=== PATIENT | male | born 1970 | race African-American/Black ===

== ENCOUNTER 2023-11-04 07:37 | Inpatient (IN) ==
[2023-11-04] MEDS ORDERED: IOPAMIDOL 100 ML BOTTLE IV ONE (07:38)
[2023-11-04] MEDS: 0.9 % SODIUM CHLORIDE 1,000 ML IV ONE ×2 (07:44→08:39)
[2023-11-04] MEDS: ACETAMINOPHEN 325 MG TABLET PO ONE (08:10)
[2023-11-04] MEDS: cefTRIAXone 2 GM in DEXTROSE 5% IN WATER 50 ML IV ONE (08:17)
[2023-11-04] MEDS: ACETAMINOPHEN 650 MG/65 ML BAG IV ONE (08:17)
[2023-11-04 08:21] LABS: ABG Methemoglobin 0.3 % (0.4-1.5); Total Hemoglobin 13.8 gm/Dl (13.5-16.5); VBG Base Excess 0 (-2-3); VBG HCO3 24.8 mmol/L (24.0-28.0); VBG Oxygen Saturation 89.5 % (40.0-70.0); VBG PCO2 40.9 mmHg (41.0-51.0); VBG Total CO2 26.1 mmol/L (25.0-29.0)
[2023-11-04 08:23] LABS: Basophils # (Auto) 0.02 K/mcL (0.00-0.30); Basophils % (Auto) 0.5 % (0.0-2.0); Eosinophils # (Auto) 0.03 K/mcL (0.00-0.70); Eosinophils % (Auto) 0.8 % (0.0-7.0); Hematocrit 36.9 % (40.1-51.0); Hemoglobin 12.3 g/dL (13.7-17.5); Lymphocytes # (Auto) 0.71 K/mcL (1.50-4.80); Lymphocytes % (Auto) 19.1 % (15.5-49.0); Mean Cell Volume 97.9 fL (80.0-100.0); Mean Corpuscular HGB Conc 33.3 g/dL (31.0-36.0); Mean Platelet Volume 10.8 fL (8.8-12.5); Monocytes # (Auto) 0.44 K/mcL (0.10-0.90); Monocytes % (Auto) 11.9 % (1.0-12.0); Neutrophils % (Auto) 67.4 % (38.0-78.0); Platelet Count 233 K/mcL (140-440); RBC 3.77 M/mcL (4.63-6.08); Red Cell Distribution Width 12.1 % (11.5-14.5); WBC 3.7 K/mcL (4.5-11.0)
[2023-11-04 08:42] LABS: Alcohol, Blood < 10.1 mg/dL; Alcohol,Blood < 0.010 gm/dL (<0.010)
[2023-11-04 09:08] LABS: INR 0.8 (0.9-1.1); Prothrombin Time 11.4 sec (11.9-14.5)
[2023-11-04 10:01] LABS: ALT/SGPT 13 U/L (<40); AST/SGOT 18 U/L (<40); Albumin 3.2 gm/dL (3.2-5.2); Alkaline Phosphatase 85 U/L (39-117); Bilirubin,Total 0.2 mg/dL (0.1-1.0); Blood Urea Nitrogen 19 mg/dL (6-20); Carbon Dioxide 23 mmol/L (22-30); Chloride 95 mmol/L (96-108); Globulin 3.3 gm/dL (2.2-3.7); Glomerular Filtration Rate 85; Glucose 766 mg/dL (70-105); Potassium 5.3 mmol/L (3.3-5.1); Sodium 128 mmol/L (133-145)
[2023-11-04 10:15] LABS: Appearance,Urine Clear (Clear); Bacteria,Urine Rare /hpf (0); Bilirubin,Urine Negative (Negative); Color,Urine Yellow; Culture Indicated,Urine Yes; Glucose,Urine (UA) >=1000 mg/dL (Negative); Ketones,Urine Negative (Negative); Leukocyte Esterase,Urine Negative /uL (Negative); Nitrate,Urine Negative (Negative); Protein,Urine 100 mg/dL (Negative); Urine Blood Trace-lysed ery/mcL (Negative); Urine RBC 0 /hpf (0-3); Urine Squamous Epithelial Cell 1 /hpf (0-4); Urine WBC 0 /hpf (0-4); Urobilinogen,Urine Normal
[2023-11-04] MEDS ORDERED: INSULIN REGULAR, HUMAN 50 UNIT in 0.9 % SODIUM CHLORIDE 99.5 ML IV SCH ×2 (10:15→12:30)
[2023-11-04] MEDS: 0.9 % SODIUM CHLORIDE 500 ML IV ONE (10:36)
[2023-11-04] MEDS: INSULIN REGULAR, HUMAN 1 UNIT/0.01 ML UNIT IV ONE (10:36)
[2023-11-04 11:58] LABS: Blood Urea Nitrogen 20 mg/dL (6-20); Calcium 9.2 mg/dL (8.6-10.4); Carbon Dioxide 19 mmol/L (22-30); Chloride 96 mmol/L (96-108); Glomerular Filtration Rate 76; Glucose 785 mg/dL (70-105); Potassium 5.4 mmol/L (3.3-5.1); Sodium 131 mmol/L (133-145)
[2023-11-04] MEDS: INSULIN REGULAR, HUMAN 50 UNIT in 0.9 % SODIUM CHLORIDE 99.5 ML IV SCH (12:10)
[2023-11-04 12:55] LABS: Blood Urea Nitrogen 18 mg/dL (6-20); Calcium 8.7 mg/dL (8.6-10.4); Carbon Dioxide 21 mmol/L (22-30); Chloride 102 mmol/L (96-108); Glomerular Filtration Rate 101; Glucose 436 mg/dL (70-105); Potassium 4.7 mmol/L (3.3-5.1); Sodium 131 mmol/L (133-145)
[2023-11-04] MEDS: AMPICILLIN SODIUM/SULBACTAM NA 3 GM in 0.9 % SODIUM CHLORIDE 100 ML IV SCH (13:14)
[2023-11-04 14:15] LABS: Sodium, Urine Random 49 mmol/L
[2023-11-04 14:23] LABS: Osmolality,Urine 576 mOSM/kg (80-1000)
[2023-11-04 14:59] LABS: Blood Urea Nitrogen 16 mg/dL (6-20); Calcium 8.9 mg/dL (8.6-10.4); Carbon Dioxide 23 mmol/L (22-30); Chloride 105 mmol/L (96-108); Glomerular Filtration Rate 101; Glucose 327 mg/dL (70-105); Phosphorous 3.2 mg/dL (2.5-4.5); Potassium 4.4 mmol/L (3.3-5.1); Sodium 134 mmol/L (133-145)
[2023-11-04] MEDS ORDERED: DEXTROSE 50% 50 ML VIAL IV PRN (16:18)
[2023-11-04] MEDS ORDERED: DEXTROSE 31 GM ORAL.SUSP PO PRN (16:18)
[2023-11-04] MEDS: EMTRICITABINE PO SCH (16:28)
[2023-11-04] MEDS: TENOFOVIR PO SCH (16:28)
[2023-11-04] MEDS: EMTRICITABINE PO ONE (16:29)
[2023-11-04] MEDS: TENOFOVIR PO ONE (16:29)
[2023-11-04] MEDS: DEXTROSE 5% IN WATER 1,000 ML IV SCH (17:49)
[2023-11-04] MEDS ORDERED: MAGNESIUM SULFATE 2 GM/50 ML BAG IV PRN (18:00)
[2023-11-04] MEDS ORDERED: ONDANSETRON 4 MG/2 ML VIAL IV PRN (18:00)
[2023-11-04] MEDS ORDERED: POTASSIUM CHLORIDE 20 MEQ TABLET PO PRN ×2 (18:00)
[2023-11-04] MEDS ORDERED: MAGNESIUM HYDROXIDE 30 ML ORAL.SUSP PO PRN (18:00)
[2023-11-04] MEDS ORDERED: ENALAPRILAT 1.25 MG/ML VIAL IV PRN (18:00)
[2023-11-04] MEDS ORDERED: LABETALOL HCL 20 MG/4 ML VIAL IV PRN (18:00)
[2023-11-04] MEDS ORDERED: POLYETHYLENE GLYCOL 3350 17 GM PACKET PO PRN (18:00)
[2023-11-04] MEDS ORDERED: LACTULOSE 20 GM/30 ML ORAL.SOL PO PRN (18:00)
[2023-11-04] MEDS ORDERED: IPRATROPIUM/ALBUTEROL 3 ML AMPUL.NEB NEB PRN (18:00)
[2023-11-04] MEDS ORDERED: VANCOMYCIN PER PHARMACY IV SCH (18:00)
[2023-11-04] MEDS ORDERED: BISACODYL 10 MG SUPP.RECT PR PRN (18:00)
[2023-11-04] MEDS ORDERED: SENNOSIDES 1 TABLET PO PRN (18:00)
[2023-11-04] MEDS ORDERED: POTASSIUM CHLORIDE 40 MEQ in DEXTROSE 5% IN WATER 500 ML IV PRN (18:00)
[2023-11-04] MEDS: NICOTINE 21 MG PATCH TOPICAL SCH (18:58)
[2023-11-04] MEDS: 0.9 % SODIUM CHLORIDE 1,000 ML IV SCH (18:58)
[2023-11-04] MEDS: POLYETHYLENE GLYCOL 3350 17 GM PACKET PO SCH (18:58)
[2023-11-04] MEDS: LISINOPRIL 10 MG TABLET PO SCH (18:58)
[2023-11-04] MEDS: INSULIN GLARGINE, HUMAN 1 UNIT/0.01 ML SQ SCH (18:58)
[2023-11-04] MEDS: SENNOSIDES 1 TABLET PO SCH (18:58)
[2023-11-04] MEDS: VANCOMYCIN 1,500 MG in 0.9 % SODIUM CHLORIDE 500 ML IV SCH (19:12)
[2023-11-04] MEDS: INSULIN LISPRO 1 UNIT/0.01 ML UNIT SQ SCH (20:34)
[2023-11-04] MEDS: TAMSULOSIN 0.4 MG CAPSULE PO SCH (20:35)
[2023-11-04] MEDS: RALTEGRAVIR POTASSIUM 400 MG TABLET PO SCH (21:00)
[2023-11-04] MEDS: DOLUTEGRAVIR 10 MG PO ONE (21:00)
[2023-11-04] MEDS: DOCUSATE SODIUM 100 MG CAPSULE PO SCH (22:07)
[2023-11-04] MEDS: ATORVASTATIN 40 MG TABLET PO SCH (22:07)
[2023-11-04] MEDS: GABAPENTIN 300 MG CAPSULE PO SCH (22:08)
[2023-11-04] MEDS: MELATONIN 3 MG TABLET PO PRN (22:08)
[2023-11-04] MEDS: ACETAMINOPHEN 325 MG TABLET PO PRN (22:21)
[2023-11-05 05:42] LABS: Hematocrit 33.6 % (40.1-51.0); Hemoglobin 11.1 g/dL (13.7-17.5); Mean Cell Volume 102.8 fL (80.0-100.0); Mean Platelet Volume 10.2 fL (8.8-12.5); Platelet Count 210 K/mcL (140-440); RBC 3.27 M/mcL (4.63-6.08); Red Cell Distribution Width 12.5 % (11.5-14.5); WBC 5.5 K/mcL (4.5-11.0)
[2023-11-05 06:02] LABS: ALT/SGPT 11 U/L (<40); AST/SGOT 19 U/L (<40); Albumin 2.7 gm/dL (3.2-5.2); Alkaline Phosphatase 63 U/L (39-117); Bilirubin,Direct < 0.2 mg/dL (0-0.3); Bilirubin,Total 0.3 mg/dL (0.1-1.0); Blood Urea Nitrogen 14 mg/dL (6-20); Calcium 8.7 mg/dL (8.6-10.4); Carbon Dioxide 23 mmol/L (22-30); Chloride 107 mmol/L (96-108); Globulin 2.7 gm/dL (2.2-3.7); Glomerular Filtration Rate 114; Glucose 202 mg/dL (70-105); Lactate Dehydrogenase 152 U/L (135-225); Phosphorous 3.2 mg/dL (2.5-4.5); Potassium 3.9 mmol/L (3.3-5.1); Sodium 135 mmol/L (133-145); Triglycerides 48 mg/dL (<150); Uric Acid 3.8 mg/dL (2.5-8.0)
[2023-11-05 06:32] LABS: Eosinophils % (Manual) 1 % (0-7); Lymphocytes % 9 % (15-49); Monocytes % (Manual) 6 % (1-12); Platelet Estimate NORMAL (Normal); RBC Morphology NORMAL (Normal); Segmented Neutrophils % 84 % (38-78)
[2023-11-05] MEDS: SERTRALINE 100 MG TABLET PO SCH (08:30)
[2023-11-05] MEDS: ENOXAPARIN 40 MG/0.4 ML SYRINGE SQ SCH (08:31)
[2023-11-05] MEDS: ASPIRIN 81 MG TAB.CHEW PO SCH (10:32)
[2023-11-05 10:43] LABS: Hemoglobin A1C 11.9 % Hgb (4.0-6.0)
[2023-11-05] MEDS: RALTEGRAVIR POTASSIUM 400 MG TABLET PO SCH ×2 (11:06→11:18)
[2023-11-05] MEDS: TENOFOVIR PO SCH (11:06)
[2023-11-05] MEDS: EMTRICITABINE PO SCH (11:06)
[2023-11-05] MEDS: cefTRIAXone 2 GM in DEXTROSE 5% IN WATER 50 ML IV SCH (11:07)
[2023-11-05] MEDS: INSULIN LISPRO 1 UNIT/0.01 ML UNIT SQ SCH (11:54)
[2023-11-06 07:16] LABS: Blood Urea Nitrogen 10 mg/dL (6-20); Carbon Dioxide 24 mmol/L (22-30); Chloride 104 mmol/L (96-108); Glomerular Filtration Rate 114; Glucose 120 mg/dL (70-105); Potassium 3.9 mmol/L (3.3-5.1); Sodium 136 mmol/L (133-145)
[2023-11-06 07:31] LABS: Basophils # (Auto) 0.02 K/mcL (0.00-0.30); Basophils % (Auto) 0.4 % (0.0-2.0); Eosinophils # (Auto) 0.05 K/mcL (0.00-0.70); Eosinophils % (Auto) 1.1 % (0.0-7.0); Lymphocytes # (Auto) 0.93 K/mcL (1.50-4.80); Mean Cell Volume 100.8 fL (80.0-100.0); Mean Corpuscular HGB Conc 32.4 g/dL (31.0-36.0); Mean Platelet Volume 10.7 fL (8.8-12.5); Monocytes # (Auto) 0.58 K/mcL (0.10-0.90); Monocytes % (Auto) 12.5 % (1.0-12.0); Neutrophils % (Auto) 65.8 % (38.0-78.0); Platelet Count 236 K/mcL (140-440); RBC 3.67 M/mcL (4.63-6.08); Red Cell Distribution Width 12.5 % (11.5-14.5); WBC 4.6 K/mcL (4.5-11.0)
[2023-11-06] MEDS: INSULIN LISPRO 1 UNIT/0.01 ML UNIT SQ SCH (07:37)
[2023-11-06] MEDS: morphine 4 MG/ML VIAL IV PRN (14:02)
[2023-11-06] MEDS: LIDOCAINE 2% URO-JET 10 ML JEL.PF.APP UR SCH (14:47)
[2023-11-06] MEDS: SULFAMETHOXAZOLE/TRIMETHOPRIM 1 TABLET PO SCH (20:21)
[2023-11-07] MEDS: traZODone HCL 50 MG TABLET PO PRN (01:39)
[2023-11-07 06:10] LABS: Basophils # (Auto) 0.02 K/mcL (0.00-0.30); Basophils % (Auto) 0.5 % (0.0-2.0); Eosinophils # (Auto) 0.05 K/mcL (0.00-0.70); Eosinophils % (Auto) 1.3 % (0.0-7.0); Hematocrit 38.5 % (40.1-51.0); Hemoglobin 11.7 g/dL (13.7-17.5); Lymphocytes # (Auto) 0.91 K/mcL (1.50-4.80); Lymphocytes % (Auto) 24.1 % (15.5-49.0); Mean Cell Volume 112.9 fL (80.0-100.0); Mean Corpuscular HGB Conc 30.4 g/dL (31.0-36.0); Mean Platelet Volume 11.2 fL (8.8-12.5); Monocytes # (Auto) 0.41 K/mcL (0.10-0.90); Monocytes % (Auto) 10.8 % (1.0-12.0); Platelet Count 239 K/mcL (140-440); RBC 3.41 M/mcL (4.63-6.08); Red Cell Distribution Width 13.2 % (11.5-14.5); WBC 3.8 K/mcL (4.5-11.0)
[2023-11-07 07:12] LABS: ALT/SGPT 15 U/L (<40); AST/SGOT 31 U/L (<40); Albumin 2.5 gm/dL (3.2-5.2); Albumin/Globulin Ratio 0.9 (1.0-2.3); Alkaline Phosphatase 72 U/L (39-117); Bilirubin,Direct < 0.2 mg/dL (0-0.3); Bilirubin,Total 0.5 mg/dL (0.1-1.0); Blood Urea Nitrogen 12 mg/dL (6-20); Calcium 8.6 mg/dL (8.6-10.4); Carbon Dioxide 20 mmol/L (22-30); Chloride 104 mmol/L (96-108); Globulin 2.9 gm/dL (2.2-3.7); Glomerular Filtration Rate 107; Glucose 311 mg/dL (70-105); Lactate Dehydrogenase 222 U/L (135-225); Phosphorous 3.7 mg/dL (2.5-4.5); Potassium 4.6 mmol/L (3.3-5.1); Sodium 132 mmol/L (133-145); Triglycerides 83 mg/dL (<150); Uric Acid 3.5 mg/dL (2.5-8.0)
[2023-11-07] MEDS: INSULIN GLARGINE, HUMAN 1 UNIT/0.01 ML SQ SCH (08:23)
[2023-11-07] MEDS ORDERED: INSULIN LISPRO 1 UNIT/0.01 ML UNIT SQ SCH (11:30)
[2023-11-07 22:51] LABS: HIV-1 RNA Ultraquant 2.25 (NOT DETECTED)
== END 2023-11-07 11:42 | DRG 637 ==
LOC: ED 07:37 → ICU 17:49
PROVIDERS: ADMIT Internal Medicine; ATTEND Student in an Organized Health Care Education/Training Program